=== PATIENT | female | born 1980 | race Caucasian/White ===

== ENCOUNTER 2016-09-05 00:22 | Emergency (ER) | payer MEDICAID, OTHER ==
[~2016-09-05] VITALS: Ht 162.6 cm; Wt 127.5 kg
[2016-09-05] MEDS ORDERED: IV NS 0.9% 1,000 ML BAG IV ONE (00:30)
[2016-09-05] MEDS ORDERED: ONDANSETRON HCL/PF 4 MG/2 ML VIAL IVP ONE (00:30)
--- NOTE | 2016-09-05 00:35 | NUR ---
PT BIB RA WITH A C/O ETOH. PT WAS IN THE HALLWAY AND VOMITTED OFF THE SIDE OF THE EMS GURNEY X3. PT WENT TO BED #4 AND WAS PLACED ON THE MONITOR AND CONITNUOUS PULSE OX. PT WAS CHANGED INTO A GOWN AND NEW LINENS APPLIED TO BED. PT'S FEET ARE DIRTY. PT IS ANSWERING QUESTIONS AND APPEARS SEVERELY INTOXICATED. PT STATED THAT SHE DRANK "A LOT OF WHISKEY AND SHOTS".
[2016-09-05] MEDS ORDERED: ONDANSETRON HCL/PF 4 MG/2 ML VIAL ONE (00:48)
[2016-09-05] MEDS ORDERED: Magnesium 1GM/D5W 100ML PREMIX 200 ML IV ONE (00:48)
[2016-09-05] MEDS ORDERED: IV SET PRIMARY 1 EA INFUS.SET MC ONE (00:48)
[2016-09-05] MEDS ORDERED: IV NS 0.9% 1,000 ML ONE (00:48)
--- NOTE | 2016-09-05 00:55 | NUR ---
20G IV STARTED IN LT WRIST. BLOOD WAS NOT OBTAINED. LAB WAS CALLED FOR A DRAW.
[2016-09-05] MEDS ORDERED: Magnesium 1 GM/2 ML VIAL IV ONE (01:00)
--- NOTE | 2016-09-05 01:01 | NUR ---
CLINICAL REVIEW NURSE IS AT THE BEDSIDE FOR BLOOD DRAW
[2016-09-05 01:12] LABS: BASOPHILS # (AUTO) 0.1 /CMM (0.0-0.2); BASOPHILS % (AUTO) 0.9 % (0.0-2.0); EOSINOPHILS # (AUTO) 0.1 /CMM (0.0-0.7); EOSINOPHILS % (AUTO) 1.9 % (0.0-6.0); HEMATOCRIT 32 % (33-45); HEMOGLOBIN 10.2 g/dL (11.5-14.8); LYMPHOCYTES # (AUTO) 2.8 /CMM (0.8-4.8); LYMPHOCYTES % (AUTO) 45.6 % (20.0-44.0); MEAN CORPUSCULAR HEMOGLOBIN 29 PG (26.0-33.0); MEAN CORPUSCULAR HGB CONC 32 g/dl (31.0-36.0); MEAN CORPUSCULAR VOLUME 89 fL (82-100); MONOCYTES # (AUTO) 0.7 /CMM (0.1-1.30); MONOCYTES % (AUTO) 11.3 % (2.0-12.0); NEUTROPHILS # (AUTO) 2.5 /CMM (1.8-8.9); NEUTROPHILS % (AUTO) 40.3 % (43.0-81.0); PLATELET COUNT (AUTO) 323 /CMM (150-450); RDW COEFFICIENT OF VARIATION 22.1 (11.5-15.0); RED BLOOD CELL COUNT(AUTO) 3.57 MIL/uL (4.0-5.2); WHITE BLOOD COUNT (AUTO) 6.1 K/uL (4.3-11.0)
[2016-09-05 01:28] LABS: CALCIUM, SERUM 8.5 mg/dL (8.5-10.1); CARBON DIOXIDE 25 mmol/L (21-32); CHLORIDE 106 mmol/L (98-107); CREATININE 0.9 mg/dL (0.6-1.3); GLUCOSE 106 mg/dL (74-106); POTASSIUM 3.4 mmol/L (3.5-5.1); SODIUM SERUM 141 mmol/L (136-145); UREA NITROGEN, BLOOD 11 mg/dL (7-18)
[2016-09-05 01:29] LABS: INR 1.02 (0.87-1.13); PROTHROMBIN TIME 10.9 SECS (9.5-12.7)
[2016-09-05 01:31] LABS: ALANINE AMINOTRANSFERASE 53 U/L (12-78); ALBUMIN 3.3 g/dL (3.4-5.0); ALKALINE PHOSPHATASE 82 U/L (46-116); ASPARTATE AMINOTRANSFERASE 67 U/L (15-37); BILIRUBIN,DIRECT 0.1 mg/dL (0.0-0.2); BILIRUBIN,TOTAL 0.4 mg/dL (0.2-1.0); TROPONIN I < 0.017 ng/mL (0.00-0.056)
[2016-09-05 01:36] LABS: ACETAMINOPHEN 0 ug/ml (10-30); SALICYLATE 2.7 mg/dL (2.8-20.0)
--- NOTE | 2016-09-05 02:30 | NUR ---
PT IS SLEEPING COMFORTABLY WITH NO S/S OF PAIN OR DISTRESS.
--- NOTE | 2016-09-05 03:24 | NUR ---
DR. FARIAS IS SPEAKING TO THE RADIOLOGIST.
--- NOTE | 2016-09-05 04:50 | NUR ---
PT WOKE UP AND URINATED ON THE BED UNDID THE IVF. APPROX 100 ML ON THE FLOOR. TOOK OFF ALL HER CLOTHES. PT IS AA&O X3 AND APPEARS TO BE ANSWERING QUESTIONS CORRECTLY. PT STATED THAT SHE HAD TO URINATE. PT WAS CLEANED UP AND NEW GOWN APPLIED. NEW LINENS APPLIED.
--- NOTE | 2016-09-05 05:50 | NUR ---
PT WAS ABLE TO AMBULATE WITH A STEADY GAIT. PT IS STANDING OUTSIDE ROOM #[address] FRAIAS.
--- NOTE | 2016-09-05 07:13 | NUR ---
Patient discharged to home in stable condition. Written and verbal after care instructions given. Patient verbalizes understanding of instruction. PT REC'D SCRUB PANTS AND WAS ABLE TO WEAR HER OTHER CLOTHES. PT'S PANTS ARE IN A BAG AND ARE VERY WET. PT REC'D ALL ACI AND IMAGING ON DISK. PT AMBULATED OUT TO THE BUS. PT WILL TAKE THE ORANGE LINE HOME. VSS. IV removed. Catheter intact and site benign. Pressure and 4x4 applied to site. No bleeding noted.
[2016-09-05 07:15] VITALS: BP 119/78
== END 2016-09-05 07:13 | disposition home or self-care (01) ==
LOC: ER 00:25
DX: R41.82 Altered mental status, unspecified (principal); F10.129 Alcohol abuse with intoxication, unspecified; G91.9 Hydrocephalus, unspecified; I10 Essential (primary) hypertension; E11.9 Type 2 diabetes mellitus without complications; R79.1 Abnormal coagulation profile; Z59.0 Homelessness; Z98.890 Other specified postprocedural states
CPT/HCPCS: 36415; 70450; 71010; 80048; 80076; 80329; 82962; 84484; 84703; 85025; 85730; 93005; 96361; 96374; 96375; 99285; A4606; G0480 ×2; J2405; J3475; J7030; Z7610; G6039-TC

== ENCOUNTER 2016-11-28 16:41 | Inpatient (IN) | payer MEDICAID, OTHER ==
[~2016-11-28] VITALS: Ht 172.7 cm; Wt 127.0 kg
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
[2016-11-28] MEDS ORDERED: ONDANSETRON HCL/PF 4 MG/2 ML VIAL ONE (16:57)
[2016-11-28] MEDS: IV NS 0.9% 1,000 ML BAG IV ONE ×2 (16:57→17:08)
[2016-11-28] MEDS ORDERED: ONDANSETRON HCL/PF 4 MG/2 ML VIAL IVP ONE (17:00)
--- NOTE | 2016-11-28 17:08 | NUR ---
PATIENT CO "FEELING WEAK" AND HEADACHE, PRESSURE-LIKE 06/11. PT AMBULATORY. VSS
[2016-11-28 17:10] LABS: BASOPHILS % (AUTO) 0.7 % (0.0-2.0); EOSINOPHILS # (AUTO) 0.2 /CMM (0.0-0.7); EOSINOPHILS % (AUTO) 3.5 % (0.0-6.0); HEMATOCRIT 29 % (33-45); HEMOGLOBIN 9.4 g/dL (11.5-14.8); LYMPHOCYTES # (AUTO) 2.8 /CMM (0.8-4.8); LYMPHOCYTES % (AUTO) 45.1 % (20.0-44.0); MEAN CORPUSCULAR HEMOGLOBIN 29 PG (26.0-33.0); MEAN CORPUSCULAR HGB CONC 33 g/dl (31.0-36.0); MEAN CORPUSCULAR VOLUME 87 fL (82-100); MONOCYTES # (AUTO) 0.6 /CMM (0.1-1.30); MONOCYTES % (AUTO) 9.3 % (2.0-12.0); NEUTROPHILS # (AUTO) 2.6 /CMM (1.8-8.9); NEUTROPHILS % (AUTO) 41.4 % (43.0-81.0); PLATELET COUNT (AUTO) 404 /CMM (150-450); RDW COEFFICIENT OF VARIATION 18.8 (11.5-15.0); RED BLOOD CELL COUNT(AUTO) 3.29 MIL/uL (4.0-5.2); WHITE BLOOD COUNT (AUTO) 6.2 K/uL (4.3-11.0)
[2016-11-28 17:16] LABS: APPEARANCE,URINE Clear (CLEAR); BILIRUBIN,URINE Negative (NEGATIVE); BLOOD, URINE Negative Ery/uL (NEGATIVE); COLOR,URINE Yellow (YELLOW); KETONES,URINE Negative (NEGATIVE); LEUKOCYTE ESTERASE ,URINE Negative (NEGATIVE); NITRITE, URINE Negative (NEGATIVE); PROTEIN,URINE Negative (NEGATIVE); UGLUCOSE Negative (NEGATIVE); UROBILINOGEN,URINE 0.2 EU/dL (0.2)
[2016-11-28 17:18] LABS: PREGNANCY TEST URINE QUAL NEGATIVE (NEGATIVE)
[2016-11-28 17:26] LABS: CALCIUM, SERUM 8.2 mg/dL (8.5-10.1); CREATININE 0.8 mg/dL (0.6-1.3); POTASSIUM 3.3 mmol/L (3.5-5.1)
[2016-11-28 17:32] LABS: ALBUMIN 2.9 g/dL (3.4-5.0); BILIRUBIN,DIRECT 0.1 mg/dL (0.0-0.2); BILIRUBIN,TOTAL 0.2 mg/dL (0.2-1.0)
--- NOTE | 2016-11-28 17:41 | NUR ---
PT WAS TAKEN TO RADIOLOGY DEPARTMENT
[2016-11-28 17:55] LABS: SALICYLATE 1.4 mg/dL (2.8-20.0)
--- NOTE | 2016-11-28 18:23 | NUR ---
CALLED [employer] App, BRAN MIXER WAS PAGED.
[2016-11-28] MEDS ORDERED: POTASSIUM CHLORIDE 20 MEQ TAB.PRT.SR PO ONE ×2 (18:30→18:43)
--- NOTE | 2016-11-28 18:46 | NUR ---
AWAARNOLDN FOR BED
--- NOTE | 2016-11-28 19:59 | NUR ---
PATIENT WILL BE ADMITTED INTO ROOM 308-1.
--- NOTE | 2016-11-28 20:03 | NUR ---
REPORT GIVEN TO FLOOR RN FOR CONTINUITY OF CARE.
--- NOTE | 2016-11-28 20:19 | NUR ---
PATIENT TRANSFERRED TO TELE . S
[2016-11-28 20:20] VITALS: BP 115/69
[2016-11-28 20:30] VITALS: BP 115/69
[2016-11-28] MEDS ORDERED: ENOXAPARIN SODIUM 40 MG/0.4 ML DISP.SYRIN SQ ONE (20:55)
[2016-11-28] MEDS ORDERED: ACETAMINOPHEN 325 MG TABLET PO PRN (21:00)
[2016-11-28] MEDS ORDERED: ZOLPIDEM TARTRATE 5 MG TABLET PO PRN (21:00)
[2016-11-28] MEDS ORDERED: MAGNESIUM HYDROXIDE 30 ML UDC PO PRN (21:00)
[2016-11-28] MEDS ORDERED: Z GUARD REMEDY 2 OZ OINT TP PRN (21:00)
[2016-11-28] MEDS ORDERED: ONDANSETRON HCL/PF 4 MG/2 ML VIAL IVP PRN (21:00)
[2016-11-28] MEDS: ENOXAPARIN SODIUM 40 MG/0.4 ML DISP.SYRIN SQ SCH (21:47)
[2016-11-28 22:18] LABS: ABG BASE EXCESS -3.8 mmol/L; ABG OXYGEN SATURATION 91.3 % (92.0-98.5); ABG PCO2 37.6 mmHg (35.0-45.0); ABG PH 7.367 (7.350-7.450); ABG PO2 71.7 mmHg (75.0-100.0); MetHb 0.8 % (0.0-1.5); O2Hb 90.6 % (94.0-97.0); SITE, ABG Right Radial; VENT MODE, BG RM AIR
[2016-11-29] VITALS: BP 115/69
--- NOTE | 2016-11-29 | NUR ---
pt is having some money in her bra which is not willing to go her out. asked pt to give us the money so we can save it in our safe box with the supervisor television chassis repair . she refused . she did not even want to take them out so we can count them. stated i will keep them with myself.
--- NOTE | 2016-11-29 02:14 | NUR ---
PAGED DR. GAGNON TO REPORT LOW K LEVEL AND HIGH AMONIA. WILL WAIT FOR HER CALL BACK.
[2016-11-29] MEDS ORDERED: ONDANSETRON HCL/PF 4 MG/2 ML VIAL ONE (03:56)
[2016-11-29] MEDS: ONDANSETRON HCL/PF 4 MG/2 ML VIAL IVP PRN ×2 (03:58→20:13)
--- NOTE | 2016-11-29 03:58 | NUR ---
ZOFRAN GIVEN ORDERED FOR AN EPISODE OF NON BLOODY FOOD PARTICLE VOMITING. WILL CONT TO MONITOR. ALSO RECEIVED A CALL BACK FROM DR GAGNON . STATED SHE IS ALREADY AWARE OF AMMONIA LEVEL W/ NNO. K IS REPLACED AT THE ER.
[2016-11-29 04:00] VITALS: BP 136/70
--- NOTE | 2016-11-29 06:22 | NUR ---
pt in bed awake and alert. breathing evenly. no sob. NAD. skin warm and dry. no more episode of vomiting after receiving the Zofran. no change in mentation. denied any pain or discomfort, sr on tele monitor, call light within reach, will cont to monitor and will endorse to am shift for bisi.
[2016-11-29 07:09] VITALS: BP 132/82
[2016-11-29] MEDS ORDERED: PANTOPRAZOLE 40 MG TABLET.DR PO SCH (07:30)
[2016-11-29 07:42] LABS: CALCIUM, SERUM 8.4 mg/dL (8.5-10.1); CREATININE 0.8 mg/dL (0.6-1.3); MAGNESIUM 1.8 mg/dL (1.8-2.4); PHOSPHORUS 3.1 mg/dL (2.5-4.9)
[2016-11-29 07:48] LABS: BASOPHILS % (AUTO) 0.4 % (0.0-2.0); EOSINOPHILS # (AUTO) 0.2 /CMM (0.0-0.7); EOSINOPHILS % (AUTO) 2.9 % (0.0-6.0); HEMATOCRIT 30 % (33-45); HEMOGLOBIN 9.7 g/dL (11.5-14.8); LYMPHOCYTES # (AUTO) 2.3 /CMM (0.8-4.8); MEAN CORPUSCULAR HEMOGLOBIN 28 PG (26.0-33.0); MEAN CORPUSCULAR HGB CONC 32 g/dl (31.0-36.0); MEAN CORPUSCULAR VOLUME 87 fL (82-100); MONOCYTES # (AUTO) 0.8 /CMM (0.1-1.30); MONOCYTES % (AUTO) 13.1 % (2.0-12.0); NEUTROPHILS # (AUTO) 2.7 /CMM (1.8-8.9); NEUTROPHILS % (AUTO) 44.6 % (43.0-81.0); PLATELET COUNT (AUTO) 348 /CMM (150-450); RDW COEFFICIENT OF VARIATION 19.8 (11.5-15.0); RED BLOOD CELL COUNT(AUTO) 3.47 MIL/uL (4.0-5.2)
--- NOTE | 2016-11-29 08:00 | NUR ---
PRESIDENT PRACTICING UROLOGIST NOTES PATIENT AWAKE ALERT IN BED, NO DISTRESS, NO SOB, NO C/O PAIN NOTED. NO NAUSEA VOMITING NOTED. ON SR TELE MONITOR. CALL LIGHT WITHIN REACH. MONITORING CLOSELY.
[2016-11-29] MEDS: PANTOPRAZOLE 40 MG TABLET.DR PO SCH (08:19)
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
[2016-11-29] MEDS ORDERED: MINERAL OIL/PETROLATUM,WHITE 120 GM JAR TP PRN (11:30)
[2016-11-29] MEDS: ACETAMINOPHEN 325 MG TABLET PO PRN (14:22)
--- NOTE | 2016-11-29 14:30 | NUR ---
MS RN NOTES PATIENT RESTING IN BED COMFORTABLY. HAD MRI BRAIN DONE. HAD C/O HEADACHE, PRN TYLENOL ADMINISTERED & WAS EFFECTIVE. ALL NEEDS ATTENDED & MET. NO DISCOMFORT NOTED. OBSERVING CLOSELY. CALL LIGHT WITHIN REACH.
--- NOTE | 2016-11-29 14:46 | NUR ---
TEXTED BACK, ON HOLD FOR NOW, HE WILL LET US KNOW.
--- NOTE | 2016-11-29 14:46 | NUR ---
TEXTED DR. RUSHING FOR MRI APPROVAL.
[2016-11-29 16:00] VITALS: BP 146/88
--- NOTE | 2016-11-29 18:48 | NUR ---
MS RN NOTES PATIENT RESTING IN BED WITH EYES CLOSED. NO ACUTE DISTRESS, NO C/O PAIN NOTED. ALL ORDERED MEDICINES ADMINISTERED, ALL NEEDS MET. CALL LIGHT WITHIN REACH. BED LOCKED & IN LOW POSITION. WILL ENDORSE TO PM SHIFT.
--- NOTE | 2016-11-29 19:10 | NUR ---
RN NOTE RECEIVED REPORT. PT AWAKE AND VERBALLY RESPONSIVE, NO S/S OF ANY DISTRESS AT THIS TIME. C/O NASEUA, WILL PROVIDE PRN MED. BREATHING NON-LABORED AND EVEN. IV INTACT AND PATENT S/L. ALL NEEDS ATTENDED TO, WILL CONT TO MONITOR. CALL LIGHT IN REACH.
[2016-11-29 20:01] VITALS: BP 130/81
[2016-11-29] MEDS: HYDROCODONE/APAP 5/325MG 1 EACH TABLET PO PRN (20:18)
[2016-11-29] MEDS: ENOXAPARIN SODIUM 40 MG/0.4 ML DISP.SYRIN SQ SCH (20:20)
[2016-11-29] MEDS: NAPROXEN 500 MG TABLET PO PRN (21:21)
[2016-11-30 06:28] LABS: BASOPHILS # (AUTO) 0.1 /CMM (0.0-0.2); BASOPHILS % (AUTO) 1.5 % (0.0-2.0); EOSINOPHILS # (AUTO) 0.2 /CMM (0.0-0.7); EOSINOPHILS % (AUTO) 3.1 % (0.0-6.0); HEMATOCRIT 30 % (33-45); HEMOGLOBIN 9.8 g/dL (11.5-14.8); LYMPHOCYTES # (AUTO) 2.3 /CMM (0.8-4.8); LYMPHOCYTES % (AUTO) 42.9 % (20.0-44.0); MEAN CORPUSCULAR HEMOGLOBIN 28 PG (26.0-33.0); MEAN CORPUSCULAR HGB CONC 33 g/dl (31.0-36.0); MEAN CORPUSCULAR VOLUME 87 fL (82-100); MONOCYTES # (AUTO) 0.5 /CMM (0.1-1.30); MONOCYTES % (AUTO) 9.6 % (2.0-12.0); NEUTROPHILS # (AUTO) 2.3 /CMM (1.8-8.9); NEUTROPHILS % (AUTO) 42.9 % (43.0-81.0); PLATELET COUNT (AUTO) 319 /CMM (150-450); RDW COEFFICIENT OF VARIATION 20.5 (11.5-15.0); RED BLOOD CELL COUNT(AUTO) 3.43 MIL/uL (4.0-5.2); WHITE BLOOD COUNT (AUTO) 5.3 K/uL (4.3-11.0)
[2016-11-30 06:49] LABS: CALCIUM, SERUM 8.4 mg/dL (8.5-10.1); CREATININE 0.8 mg/dL (0.6-1.3); MAGNESIUM 1.6 mg/dL (1.8-2.4); PHOSPHORUS 3.9 mg/dL (2.5-4.9); POTASSIUM 3.7 mmol/L (3.5-5.1)
--- NOTE | 2016-11-30 07:30 | NUR ---
PT RECEIVED RESTING COMFORTABLY IN BED WITH EYES CLOSED. NO S/S OR C/O PAIN OR DISTRESS NOTED. SIDE RAILS UP X2, CALL LIGHT LEFT WITHIN REACH. WILL CONTINUE PLAN OF CARE.
[2016-11-30 08:00] VITALS: BP 120/72
[2016-11-30] MEDS: PANTOPRAZOLE 40 MG TABLET.DR PO SCH (09:13)
[2016-11-30] MEDS ORDERED: Magnesium 1GM/D5W 100ML PREMIX 100 ML IV SCH (10:36)
[2016-11-30] MEDS: Magnesium 1GM/D5W 100ML PREMIX 100 ML IV SCH ×2 (11:04→12:20)
[2016-11-30 13:01] LABS: IRON, SERUM 25 ug/dl (50-175); TOTAL IRON BINDING CAPACITY 328 ug/dl (250-450)
[2016-11-30 16:00] VITALS: BP 124/71
[2016-11-30] MEDS: NAPROXEN 500 MG TABLET PO PRN (18:57)
--- NOTE | 2016-11-30 19:09 | NUR ---
CHANGE OF SHIFT REPORT PT RESTING COMFORTABLY IN BED. NO S/S OR C/O PAIN OR DISTRESS NOTED. SIDE RAILS UP X2, CALL LIGHT LEFT WITHIN REACH. PT KEPT CLEAN, DRY, AND COMFORTABLE. NO SIGNIFICANT CHANGES SINCE PREVIOUS SHIFT. REPORT GIVEN TO ERIN MORIN.
--- NOTE | 2016-11-30 19:34 | NUR ---
MS/RN OPENING NOTES PATIENT IN BED NOB ELEVATED. ALERT. ORIENTEDX2. ABLE TO VERBALIZE NEEDS. BRP W/ SUPERVISIOM.RECEIVED ENDORSEMENT FROM AM RN REGARDING CANDIDO. REQUIRE MONITORING AND PAIN MONITORING LAST PAIN MEDICATION GIVEN 1899. WILL CONTINUE MONITORING. LEFT AC GAUGE 20 PATENT W/ NO S/S OF INFILTRATION. BED IN LOCK POSITION.
[2016-11-30 20:00] VITALS: BP 113/80
[2016-11-30 20:04] VITALS: BP 113/80
[2016-11-30] MEDS: ENOXAPARIN SODIUM 40 MG/0.4 ML DISP.SYRIN SQ SCH (21:42)
--- NOTE | 2016-12-01 06:06 | NUR ---
308-1MS/RN CLOSING NOTES PATIENT ABLE TO SLEEP DURING THE SHIFT. NO S/S OF DISCOMFORT. RESPIRATIONS EVEN AND UNLABORED. SKIN WARM TO TOUCH. ABLE TO AMBULATE TO THER BATHROOM, WILL CONTINUE TO MONITOR AND WILL ENDORSE TO AM RN REGARDING PLAN OF CARE.
[2016-12-01 06:29] LABS: BASOPHILS % (AUTO) 0.3 % (0.0-2.0); EOSINOPHILS # (AUTO) 0.2 /CMM (0.0-0.7); EOSINOPHILS % (AUTO) 3.8 % (0.0-6.0); HEMATOCRIT 30 % (33-45); HEMOGLOBIN 9.9 g/dL (11.5-14.8); LYMPHOCYTES # (AUTO) 2.2 /CMM (0.8-4.8); LYMPHOCYTES % (AUTO) 38.4 % (20.0-44.0); MEAN CORPUSCULAR HEMOGLOBIN 29 PG (26.0-33.0); MEAN CORPUSCULAR HGB CONC 33 g/dl (31.0-36.0); MEAN CORPUSCULAR VOLUME 87 fL (82-100); MONOCYTES # (AUTO) 0.6 /CMM (0.1-1.30); MONOCYTES % (AUTO) 9.7 % (2.0-12.0); NEUTROPHILS # (AUTO) 2.8 /CMM (1.8-8.9); NEUTROPHILS % (AUTO) 47.8 % (43.0-81.0); PLATELET COUNT (AUTO) 363 /CMM (150-450); RDW COEFFICIENT OF VARIATION 20.2 (11.5-15.0); RED BLOOD CELL COUNT(AUTO) 3.46 MIL/uL (4.0-5.2); WHITE BLOOD COUNT (AUTO) 5.9 K/uL (4.3-11.0)
[2016-12-01 06:52] LABS: CALCIUM, SERUM 8.3 mg/dL (8.5-10.1); CREATININE 0.9 mg/dL (0.6-1.3); PHOSPHORUS 4.4 mg/dL (2.5-4.9)
--- NOTE | 2016-12-01 07:41 | NUR ---
RN NOTES RECEIVED PATIENT IN BED, AWAKE, HOB ELEVATED, NO SOB OR DISTRESS NOTED. A/O X 2, VERBALLY RESPONSIVE AND ABLE TO MAKE NEEDS KNOWN. IV INTACT AND PATENT. KEPT PATIENT CLEAN AND COMFORTABLE IN BED, CALL LIGHT WITHIN PATIENT REACH, WILL CONTINUE TO MONITOR ACCORDINGLY.
[2016-12-01 08:00] VITALS: BP 133/95
[2016-12-01] MEDS: PANTOPRAZOLE 40 MG TABLET.DR PO SCH (08:37)
--- NOTE | 2016-12-01 13:20 | NUR ---
RN NOTES PATIENT IS SITTING DOWN IN BED WITH NO SOB, DISTRESS NOTED NOR PAIN.
[2016-12-01 16:00] VITALS: BP 154/93
--- NOTE | 2016-12-01 18:29 | NUR ---
RN NOTES ALL NEEDS PROVIDED, ATTENDED, AND ANTICIPATED. KEPT PATIENT CLEAN AND COMFORTABLE IN BED, ALL LIGHT WITHIN PATIENT REACH, WILL CONTINUE TO MONITOR ACCORDINGLY. ENDORSED TO NEXT SHIFT RN TO CONTINUE CARE.
[2016-12-01] MEDS: ACETAMINOPHEN 325 MG TABLET PO PRN (18:47)
--- NOTE | 2016-12-01 19:20 | NUR ---
MS/RN OPENING NOTES PATIENT IN BED, HOB ELEVATED. NO S/S OF DISCOMFORT . RECEIVED TYLENOL 650 MG PO BY AM RN AND NO COMPLAIN OF PAIN. PROVIDED ICE WATER. WATCGING TV AND INFORMED TO USE CALL LIGHT FOR ASSISTANCE. IV SITE ON LEFT AC, INTACT AND PATENT. SKIN WARM TO TOUCH. RESPIRATION EVEN AND NON LABORED. LAST BM 2 DAYS AGO. OFFERED PRUNE JUICE. WILL MONITOR. BED IN LOCK POSITION. CALL LIGHTS WITHIN REACH.
[2016-12-01 20:00] VITALS: BP 146/83
[2016-12-01] MEDS: ENOXAPARIN SODIUM 40 MG/0.4 ML DISP.SYRIN SQ SCH (20:04)
--- NOTE | 2016-12-01 23:57 | NUR ---
MS/RN NOTES PATIENT WAS ABLE TO HAVE BOWEL MOVEMENT.
--- NOTE | 2016-12-02 03:56 | NUR ---
MS/RN NOTES PATIENT REPORTED 4/10 PAIN LEVEL ON THE BACK. PRN MED NORCO 5-325 MG O TO GIVE AND MONITOR EFFECTIVENESS.
[2016-12-02] MEDS: HYDROCODONE/APAP 5/325MG 1 EACH TABLET PO PRN ×2 (04:02→08:25)
--- NOTE | 2016-12-02 06:20 | NUR ---
308-1 MS-RN CLOSING NOTES PATIENT INHOB ELEVATED. ABLE TO SLEEP 4 TO 5 HOURS, PATIETN PREFERS WATCHING TV TO GO TO SLEEP. HAD I BM. MONITORED FOR ANY PAIN. RESPIRATIONS EVEN AND UNLABORED. WILL CONTINUE TOP MONITOR. WILL ENDORSE TO AM RN REGARDING CANDIDO.
[2016-12-02 06:49] LABS: BASOPHILS % (AUTO) 0.4 % (0.0-2.0); EOSINOPHILS # (AUTO) 0.2 /CMM (0.0-0.7); EOSINOPHILS % (AUTO) 3.3 % (0.0-6.0); HEMATOCRIT 30 % (33-45); HEMOGLOBIN 9.9 g/dL (11.5-14.8); LYMPHOCYTES % (AUTO) 37.4 % (20.0-44.0); MEAN CORPUSCULAR HEMOGLOBIN 29 PG (26.0-33.0); MEAN CORPUSCULAR HGB CONC 33 g/dl (31.0-36.0); MEAN CORPUSCULAR VOLUME 87 fL (82-100); MONOCYTES # (AUTO) 0.6 /CMM (0.1-1.30); MONOCYTES % (AUTO) 10.6 % (2.0-12.0); NEUTROPHILS # (AUTO) 2.6 /CMM (1.8-8.9); NEUTROPHILS % (AUTO) 48.3 % (43.0-81.0); PLATELET COUNT (AUTO) 359 /CMM (150-450); RDW COEFFICIENT OF VARIATION 20.2 (11.5-15.0); RED BLOOD CELL COUNT(AUTO) 3.48 MIL/uL (4.0-5.2); WHITE BLOOD COUNT (AUTO) 5.4 K/uL (4.3-11.0)
[2016-12-02 07:25] LABS: CALCIUM, SERUM 8.5 mg/dL (8.5-10.1); CREATININE 0.9 mg/dL (0.6-1.3); MAGNESIUM 1.8 mg/dL (1.8-2.4); PHOSPHORUS 4.3 mg/dL (2.5-4.9); POTASSIUM 3.9 mmol/L (3.5-5.1)
--- NOTE | 2016-12-02 07:51 | NUR ---
MED SURGE RN: INITIAL NOTE RECEIVED PT ALERT AND ORIENTED X2. NO DISTRESS NOTED. PAIN CONTROLLED WITH PAIN MANAGEMENT. NO SOB NOTED. NO N/V NOTED. NO IV FLUIDS ORDERED. IV LEFT AC #20, PATENT, NO REDNESS. RESTING COMFORTABLY IN BED. CALL LIGHT WITHIN REACH.
[2016-12-02 08:00] VITALS: BP 148/80
[2016-12-02] MEDS: PANTOPRAZOLE 40 MG TABLET.DR PO SCH (08:24)
[2016-12-02] MEDS ORDERED: NAPR500T3 PO (09:27)
[2016-12-02] MEDS ORDERED: ALLA266C2 TP (09:27)
[2016-12-02] MEDS ORDERED: ACET325T53 PO (09:27)
--- NOTE | 2016-12-02 10:09 | NUR ---
MS/RN NOTES REPORT RECEIVED FOR CONTINUITY OF CARE. PATIENT RESTING IN BED COMFORTABLY, POSSIBLY DISCHARGED POST PT THERAPY. PATIENT WILL BE PROVIDED WITH BUS TOKENS FOR TRANSPORTATION AND WILL BE DISCHARGE HOME WITH HOME HEALTH. PATIENT STABLE, NOT IN ANY FORM OF DISTRESS. DENIES ANY PAIN FOR DISCOMFORT. WILL CONTINUE TO MONITOR.
--- NOTE | 2016-12-02 10:29 | NUR ---
LUCI DE LUNA RN: NOTE GAVE REPORT TO KEELY FOR CONTINUITY OF PT CARE.
--- NOTE | 2016-12-02 14:42 | NUR ---
ANA received a call from SINCERE Null informing ANA that pt. needs a pair of size 11 shoes. ANA gave FUNERAL SALES MANAGER a pair of shorts, shirt and a pair of shoes to give to pt. Pt. received a call back from MIKEL Null informing ANA that the shoes do not fit pt and pt. will require fllip flops. ANA informed MIKEL Null there are no flipflops available and ANA will contact nursing service crew supervisor Amaris regarding pt. not having any shoes and if pt. can be transported home via taxi. According to MIKEL Null, pt's belongings list had slippers but they are nowhere to be found at this time. Nursing Barge Master Amaris informed ANA she will further inquire with housekeeping if they can find pt. any shoes and follow up with SINCERE Null. Addendum: 12/02/16 at 1453 by JANIE PEREZ Nursing Barge Master Amaris informed ANA that pt. was given a pair of pants, shoes and shirt.
--- NOTE | 2016-12-02 15:20 | NUR ---
ms/rn hemodialysis note all discharge forms completed, signed and a copy placed in chart. patient scheduled to be discharged home with [facility] as arranged by director social welfare. patient had no shoes cloths to go home with sW gave CLOTH WORKER a pair of shorts, shirt and a pair of shoes to give to pt. discussed discharge instructions with patient where verbalized understanding of instructions given. refrigeration repair supervisor tomas provided 4 tokens to provide patient to be transported to home safely. patient left facility escorted down by vidhya
--- NOTE | 2016-12-02 15:20 | NUR ---
d/c note iv removed and covered with 4x4 properly and removed wrist bands.
== END 2016-12-02 15:30 | disposition home health service (06) | DRG 775 ==
LOC: ER 16:42 → TELE 20:05 → MED 11-29 09:07
PROVIDERS: ADMIT Nurse Practitioner Acute Care; ATTEND Nurse Practitioner Acute Care
DX: F10.129 Alcohol abuse with intoxication, unspecified (principal); G92 Toxic encephalopathy; G93.89 Other specified disorders of brain; E44.1 Mild protein-calorie malnutrition; I10 Essential (primary) hypertension; D63.8 Anemia in other chronic diseases classified elsewhere; E11.9 Type 2 diabetes mellitus without complications; G31.9 Degenerative disease of nervous system, unspecified; Z68.41 Body mass index [BMI] 40.0-44.9, adult; E88.09 Other disorders of plasma-protein metabolism, not elsewhere classified; E66.01 Morbid (severe) obesity due to excess calories; E87.6 Hypokalemia; Z59.0 Homelessness; G62.9 Polyneuropathy, unspecified; Y90.8 Blood alcohol level of 240 mg/100 ml or more; Z91.14 Patient's other noncompliance with medication regimen
CPT/HCPCS: 36415; 36600; 70450-TC; 70551-TC; 80048-TC; 80061-TC; 80076-TC; 80305; 81000-TC; 82140-TC; 82803-TC; 83540-TC; 83735-TC; 84100-TC; 84703-TC; 85025-TC; 87081-TC; A4606; G0480; J1650; J2405; J3475; J7030; J7050; Z7610

== ENCOUNTER 2016-12-02 23:04 | Emergency (ER) | payer OTHER ==
[~2016-12-02] VITALS: Ht 165.1 cm; Wt 81.6 kg
[~2016-12-02 23:04] MED LIST: ACET325T53 PO; ALLA266C2 TP; NAPR500T3 PO
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
--- NOTE | 2016-12-02 23:35 | NUR ---
DR FARIAS AT BEDSIDE TO EVAL.
[2016-12-03] MEDS ORDERED: ACETAMINOPHEN 325 MG TABLET ONE (04:21)
[2016-12-03] MEDS ORDERED: ACETAMINOPHEN 325 MG TABLET PO ONE (04:30)
--- NOTE | 2016-12-03 04:31 | NUR ---
Patient discharged to home in stable condition. Written and verbal after care instructions given. Patient verbalizes understanding of instruction. Patient is ambulatory with steady gait, no further complaints.
[2016-12-03 04:32] VITALS: BP 118/74
== END 2016-12-03 04:33 | disposition home or self-care (01) ==
LOC: ER 23:06
DX: F10.10 Alcohol abuse, uncomplicated (principal); I10 Essential (primary) hypertension
CPT/HCPCS: 82962; 99283; A4606; Z7610